=== PATIENT | female | born 1990 | race Caucasian/White ===

== ENCOUNTER 2023-02-07 09:06 | Day surgery (SDC) | payer BC ==
[2023-02-07] MEDS ORDERED: hydrALAZINE 20 MG/ML VIAL SLOW IVP PRN (11:27)
== END 2023-02-07 13:22 | disposition home or self-care (01) ==
LOC: CSHLD/OP 09:06
PROVIDERS: ATTEND Obstetrics & Gynecology
DX: O47.1 False labor at or after 37 completed weeks of gestation (principal); O99.513 Diseases of the respiratory system complicating pregnancy, third trimester; J45.909 Unspecified asthma, uncomplicated; Z79.899 Other long term (current) drug therapy; Z88.0 Allergy status to penicillin; Z3A.37 37 weeks gestation of pregnancy
CPT/HCPCS: 99283

== ENCOUNTER 2023-02-12 16:21 | Day surgery (SDC) | payer BC ==
[2023-02-12 17:02] VITALS: BMI 46.5
[2023-02-12 17:33] LABS: Fetal Membranes Rupture No Membranes Rupture (No Rupture)
[2023-02-12] MEDS ORDERED: hydrALAZINE 20 MG/ML VIAL SLOW IVP PRN (17:52)
== END 2023-02-12 17:55 | disposition home or self-care (01) ==
LOC: CSHLD/OP 16:21
PROVIDERS: ATTEND Obstetrics & Gynecology
DX: Z03.71 Encounter for suspected problem with amniotic cavity and membrane ruled out (principal); O47.1 False labor at or after 37 completed weeks of gestation; Z79.899 Other long term (current) drug therapy; Z88.0 Allergy status to penicillin; Z91.018 Allergy to other foods; Z3A.38 38 weeks gestation of pregnancy
CPT/HCPCS: 84112; 99283

== ENCOUNTER 2023-02-18 18:10 | Inpatient (IN) | payer BC ==
[~2023-02-18 18:10] MED LIST: Bupivacaine 0.25% HCL 30 ML VIAL ONE
[2023-02-18] MEDS ORDERED: Diphenoxylate HCl/Atropine Tablet PO PRN ×2 (18:51)
[2023-02-18] MEDS ORDERED: Misoprostol 200 MCG TAB PR PRN (18:51)
[2023-02-18] MEDS ORDERED: hydrALAZINE 20 MG/ML VIAL SLOW IVP PRN (18:51)
[2023-02-18] MEDS ORDERED: Butorphanol Tartrate 1 MG/ML VIAL SLOW IVP PRN (18:51)
[2023-02-18] MEDS ORDERED: Lidocaine 1% (PF) 30 ML VIAL SC PRN (18:51)
[2023-02-18] MEDS ORDERED: Ibuprofen 800 MG TAB PO PRN (18:51)
[2023-02-18] MEDS ORDERED: Lactated Ringer's 1,000 ML IV SCH (18:51)
[2023-02-18] MEDS ORDERED: Promethazine HCl 25 MG/ML VIAL IM PRN (18:51)
[2023-02-18] MEDS ORDERED: Methylergonovine 0.2 MG/ML VIAL IM PRN (18:51)
[2023-02-18] MEDS ORDERED: Carboprost 250 MCG/ML AMP IM PRN (18:51)
[2023-02-18] MEDS ORDERED: NS w/ Oxytocin 30 units 500 ML IV SCH ×2 (18:51)
[2023-02-18] MEDS ORDERED: HYDROcodone/Acetaminophen 5/325 mg Tablet PO PRN ×2 (18:51)
[2023-02-18] MEDS ORDERED: Acetaminophen 500 MG TAB PO PRN (18:51)
[2023-02-18] MEDS ORDERED: Ondansetron PF 4 MG/2 ML Vial IVP PRN (18:51)
[2023-02-18 18:53] VITALS: BMI 45.1
[2023-02-18 19:46] LABS: Hemoglobin 10.7 g/dL (12.0-15.5); Mean Corpuscular HGB CONC 31.6 g/dL (32.0-36.0); Mean Corpuscular Hemoglobin 25.2 pg (27.0-33.0); Mean Corpuscular Volume 79.8 fl (81.6-98.3); Mean Platelet Volume 9.5 fl (7.4-10.4); Platelet Count 253 10x3/uL (150-450); RBC Distribution Width 15.6 % (11.5-14.5); Red Blood Cell (RBC) Count 4.25 10x6/uL (3.90-5.03); White Blood Cell (WBC) Count 10.6 10x3/uL (3.5-10.5)
[2023-02-18 20:21] LABS: Syphilis Antibody Nonreactive (Nonreactive); Syphilis Antibody Index 0.03 S/CO (<1.00 Non-Reactive)
[2023-02-18 20:23] LABS: HBSAg Index 0.17 S/CO (0-0.99); Hep B Surf Ag - L&D Non-Reactive S/CO (NonReactive)
[2023-02-19] MEDS ORDERED: Fentanyl 100 MCG/2 ML VIAL ONE ×3 (08:04→14:07)
[2023-02-19] MEDS ORDERED: Fentanyl 2 mcg/Bup 0.1% Cadd 100 ML ONE (09:41)
[2023-02-19] MEDS ORDERED: Communication Order-Pharmacy FS SCH ×2 (10:00→14:45)
[2023-02-19] MEDS ORDERED: Fentanyl 2 mcg/Bupivacaine 0.1% Cassette 100 ML EPIDURAL SCH (10:00)
[2023-02-19] MEDS ORDERED: Famotidine/PF 20 mg/2ml Vial SLOW IVP PRN (13:13)
[2023-02-19] MEDS ORDERED: Bicitra 30 ML UDCUP PO PRN (13:13)
[2023-02-19] MEDS ORDERED: Acetaminophen 325 MG TAB PO PRN ×2 (13:21→14:42)
[2023-02-19] MEDS ORDERED: Simethicone Chewable 80 MG TAB PO PRN (13:21)
[2023-02-19] MEDS ORDERED: Lanolin Ointment 7 GM TUBE TOP PRN (13:21)
[2023-02-19] MEDS ORDERED: hydrALAZINE 20 MG/ML VIAL SLOW IVP PRN (13:21)
[2023-02-19] MEDS ORDERED: Zolpidem Tartrate 5 MG TAB PO PRN (13:21)
[2023-02-19] MEDS ORDERED: HYDROcodone/Acetaminophen 5/325 mg Tablet PO PRN ×2 (13:21)
[2023-02-19] MEDS ORDERED: Boostrix 0.5 ML (Tdap) VIAL (>/=7 yrs of age) IM ONE (13:21)
[2023-02-19] MEDS ORDERED: Bisacodyl 10 MG SUPP PR PRN (13:21)
[2023-02-19] MEDS ORDERED: diphenhydrAMINE 25 MG CAP PO PRN (13:21)
[2023-02-19] MEDS ORDERED: ePHEDrine Sulfate 50 MG/10 ML VIAL ONE (13:22)
[2023-02-19] MEDS ORDERED: PHENYLEPHRINE-NS 100 MCG/ML 10 ML SYRINGE ONE (13:22)
[2023-02-19] MEDS ORDERED: Oxytocin 10 UNITS/ML VIAL ONE ×2 (13:22→14:21)
[2023-02-19] MEDS ORDERED: Ketorolac Tromethamine 30 MG/ML VIAL ONE (13:22)
[2023-02-19] MEDS ORDERED: Ondansetron PF 4 MG/2 ML Vial ONE (13:22)
[2023-02-19] MEDS ORDERED: Azithromycin 500 MG VIAL ONE (13:23)
[2023-02-19] MEDS ORDERED: CEFAZOLIN 2 GM VIAL ONE (13:23)
[2023-02-19] MEDS ORDERED: Lidocaine 2% MPF 10 ML AMP (For Epidural Use) ONE ×2 (13:23→13:50)
[2023-02-19] MEDS ORDERED: Promethazine HCl 25 MG/ML VIAL IM PRN ×2 (14:38→14:42)
[2023-02-19] MEDS ORDERED: Moisturizing Cream (Eucerin) 113 GM JAR TOP PRN ×2 (14:38→14:42)
[2023-02-19] MEDS ORDERED: Naloxone HCl 0.4 mg/ml Vial IV PRN (14:38)
[2023-02-19] MEDS ORDERED: Meperidine HCl/PF 25 MG/ML VIAL SLOW IVP PRN (14:38)
[2023-02-19] MEDS ORDERED: Promethazine HCl 25 MG SUPP PR PRN (14:38)
[2023-02-19] MEDS ORDERED: Ondansetron PF 4 MG/2 ML Vial IVP PRN ×2 (14:38→14:42)
[2023-02-19] MEDS ORDERED: diphenhydrAMINE 50 MG/ML VIAL IVP PRN ×2 (14:38→14:42)
[2023-02-19] MEDS ORDERED: Fentanyl 100 MCG/2 ML VIAL SLOW IVP PRN (14:38)
[2023-02-19] MEDS ORDERED: Ondansetron HCl/PF 4 MG/2 ML Vial IVP PRN (14:38)
[2023-02-19] MEDS ORDERED: Naloxone HCl 0.4 mg/ml Vial IVP PRN ×4 (14:38→14:42)
[2023-02-19] MEDS ORDERED: Lactated Ringer's 500 ML IV PRN (14:42)
[2023-02-19] MEDS ORDERED: ePHEDrine Sulfate 50 MG/10 ML VIAL SLOW IVP PRN (14:42)
[2023-02-19] MEDS ORDERED: Meperidine HCl/PF 25 MG/ML VIAL ONE (16:04)
[2023-02-19] MEDS ORDERED: Dexamethasone 4 mg/ml Vial ONE (16:04)
[2023-02-19] MEDS ORDERED: Ketorolac Tromethamine 30 MG/ML VIAL IVP SCH (20:00)
[2023-02-19] MEDS ORDERED: Ketorolac Tromethamine 30 MG/ML VIAL IVP PRN (20:00)
[2023-02-19] MEDS ORDERED: Ibuprofen 800 MG TAB PO SCH (23:15)
[2023-02-19] MEDS: HYDROcodone/Acetaminophen 5/325 mg Tablet PO PRN (23:37)
[2023-02-20 04:16] LABS: Hemoglobin 8.2 g/dL (12.0-15.5); Mean Corpuscular HGB CONC 30.5 g/dL (32.0-36.0); Mean Corpuscular Hemoglobin 24.8 pg (27.0-33.0); Mean Corpuscular Volume 81.3 fl (81.6-98.3); Mean Platelet Volume 9.7 fl (7.4-10.4); Platelet Count 191 10x3/uL (150-450); RBC Distribution Width 15.8 % (11.5-14.5); Red Blood Cell (RBC) Count 3.31 10x6/uL (3.90-5.03); White Blood Cell (WBC) Count 11.1 10x3/uL (3.5-10.5)
[2023-02-20] MEDS: Docusate 100 MG CAP PO SCH ×3 (06:31→20:01)
[2023-02-20] MEDS: Ferrous Sulfate 325 MG TAB PO SCH ×3 (06:31→20:01)
[2023-02-20] MEDS: Ibuprofen 800 MG TAB PO SCH ×3 (06:32→22:00)
[2023-02-20] MEDS: HYDROcodone/Acetaminophen 5/325 mg Tablet PO PRN ×3 (07:39→20:01)
[2023-02-20] MEDS: Prenatal Vitamin 1 TAB PO SCH (14:09)
[2023-02-21] MEDS: HYDROcodone/Acetaminophen 5/325 mg Tablet PO PRN ×3 (00:04→10:28)
[2023-02-21] MEDS: Ibuprofen 800 MG TAB PO SCH (05:59)
[2023-02-21] MEDS ORDERED: Ibuprofen 800 MG TAB PO SCH (06:00)
[2023-02-21] MEDS: Ferrous Sulfate 325 MG TAB PO SCH (09:19)
[2023-02-21] MEDS: Docusate 100 MG CAP PO SCH (09:19)
[2023-02-21] MEDS: Prenatal Vitamin 1 TAB PO SCH (09:19)
[2023-02-21 11:29] VITALS: BP 131/65; TEMP 98.1
== END 2023-02-21 11:03 | disposition home or self-care (01) | DRG 807 ==
LOC: CSHLD 18:10 → CSHPP 02-19 16:50
PROVIDERS: ADMIT Obstetrics & Gynecology; ATTEND Obstetrics & Gynecology
PROC: 10E0XZZ Delivery of Products of Conception, External Approach (ICD-10-PCS; principal; 2023-02-19)
DX: O62.0 Primary inadequate contractions (principal); Z37.0 Single live birth; Z3A.39 39 weeks gestation of pregnancy; O34.211 Maternal care for low transverse scar from previous cesarean delivery; O99.214 Obesity complicating childbirth; E66.9 Obesity, unspecified; O99.52 Diseases of the respiratory system complicating childbirth; O99.02 Anemia complicating childbirth; J45.909 Unspecified asthma, uncomplicated; D64.9 Anemia, unspecified; Z88.1 Allergy status to other antibiotic agents; Z88.0 Allergy status to penicillin; Z91.018 Allergy to other foods; Z79.899 Other long term (current) drug therapy
CPT/HCPCS: 36415; 51702; 85027; 86780; 86850; 86900; 86901; 87340; J0456; J1100; J1885; J2175; J2405; J2550; J2590; J3010; S0020

== ENCOUNTER 2024-01-21 11:50 | Outpatient (CLI) | payer BC ==
[2024-01-21 12:51] LABS: Hematocrit 35.9 % (34.9-44.5); Hemoglobin 12.4 g/dL (12.0-15.5); Mean Corpuscular HGB CONC 34.5 g/dL (32.0-36.0); Mean Corpuscular Hemoglobin 29.8 pg (27.0-33.0); Mean Corpuscular Volume 86.3 fl (81.6-98.3); Mean Platelet Volume 10.2 fl (7.4-10.4); Platelet Count 215 10x3/uL (150-450); RBC Distribution Width 13.9 % (11.5-14.5); Red Blood Cell (RBC) Count 4.16 10x6/uL (3.90-5.03); White Blood Cell (WBC) Count 9.7 10x3/uL (3.5-10.5)
[2024-01-21 13:20] LABS: Anion Gap 14 mmol/L (10-20); BUN (Urea Nitrogen) 6 mg/dL (7.0-18.7); Calc. Creatinine Clearance 0 mL/min (70-130); Calcium 8.6 mg/dL (7.8-10.44); Carbon Dioxide 19 mmol/L (22-29); Chloride 109 mmol/L (98-107); Estimated GFR 118; Glucose 96 mg/dL (70-105); Potassium 3.6 mmol/L (3.5-5.1); Sodium 138 mmol/L (136-145)
== END 2024-01-21 11:51 | disposition home or self-care (01) ==
LOC: CSHLAB 11:50
PROVIDERS: ATTEND Orthopaedic Surgery
DX: Z01.818 Encounter for other preprocedural examination (principal); S93.325A Dislocation of tarsometatarsal joint of left foot, initial encounter
CPT/HCPCS: 80048; 85027; 93005; 93010

== ENCOUNTER 2024-01-22 10:02 | Day surgery (SDC) | payer BC ==
[2024-01-21 12:21] VITALS: BMI 44.2
[2024-01-22] MEDS ORDERED: Bupivacaine PF 0.5% 30 ML VIAL ONE ×2 (10:20→11:30)
[2024-01-22] MEDS ORDERED: CEFAZOLIN 2 GM VIAL ONE (11:24)
[2024-01-22] MEDS ORDERED: fentaNYL 50 mcg/mL 1 mL Vial ONE ×2 (11:26→13:01)
[2024-01-22] MEDS ORDERED: Rocuronium Bromide 10 MG/ML (10ML VIAL) ONE (11:26)
[2024-01-22] MEDS ORDERED: PROPOFOL 20 ML ONE (11:26)
[2024-01-22] MEDS ORDERED: SUGAMMADEX SODIUM 200 MG/2 ML VIAL ONE (11:26)
[2024-01-22] MEDS ORDERED: Dexamethasone 20 MG/5 ML VIAL ONE (11:26)
[2024-01-22] MEDS ORDERED: Ondansetron PF 4 MG/2 ML Vial ONE (11:26)
== END 2024-01-22 14:25 | disposition home or self-care (01) ==
LOC: CSHSDC 10:02
PROVIDERS: ATTEND Orthopaedic Surgery
PROC: 0QSP04Z Reposition Left Metatarsal with Internal Fixation Device, Open Approach (ICD-10-PCS; principal; 2024-01-22)
PROC: 0SSL04Z Reposition Left Tarsometatarsal Joint with Internal Fixation Device, Open Approach (ICD-10-PCS; principal; 2024-01-22)
DX: S93.325A Dislocation of tarsometatarsal joint of left foot, initial encounter (principal); Z88.0 Allergy status to penicillin; Z88.1 Allergy status to other antibiotic agents; Z91.018 Allergy to other foods; Z91.02 Food additives allergy status; W22.09XA Striking against other stationary object, initial encounter; Y92.008 Other place in unspecified non-institutional (private) residence as the place of occurrence of the external cause
CPT/HCPCS: J0665; J1100; J2405; J2704; J3010

== ENCOUNTER 2024-05-10 11:15 | Day surgery (SDC) | payer BC ==
[2024-05-10 12:13] VITALS: BMI 47.9
== END 2024-05-10 16:50 | disposition home or self-care (01) ==
LOC: CSHLD/OP 11:15
PROVIDERS: ATTEND Obstetrics & Gynecology
DX: O99.891 Other specified diseases and conditions complicating pregnancy (principal); R51.9 Headache, unspecified; O34.219 Maternal care for unspecified type scar from previous cesarean delivery; Z3A.34 34 weeks gestation of pregnancy; Z88.1 Allergy status to other antibiotic agents; Z88.0 Allergy status to penicillin; Z91.018 Allergy to other foods; Z91.02 Food additives allergy status
CPT/HCPCS: 36415; 80053; 81001; 82570; 84156; 85025; 87086; J2405; J2765

== ENCOUNTER 2024-05-11 20:56 | Day surgery (SDC) | payer BC ==
[2024-05-11] MEDS ORDERED: hydrALAZINE 20 MG/ML VIAL SLOW IVP PRN (21:00)
[2024-05-11 21:25] VITALS: BMI 47.9
[2024-05-11] MEDS: diphenhydrAMINE 50 MG/ML VIAL IVP PRN (22:39)
[2024-05-11 22:46] LABS: #Basophils 0.03 10x3/uL (0.0-0.2); #Monocytes 0.95 10x3/uL (0.0-1.1); #Neutrophils 8.84 10x3/uL (1.5-8.4); %Basophils 0.2 % (0.0-2.0); %Eosinophils 0.8 % (0.0-6.0); %Lymphocytes 17.4 % (18.0-47.0); %Monocytes 7.7 % (0.0-10.0); %Neutrophils 71.6 % (40.0-75.0); Hematocrit 33.1 % (34.9-44.5); Hemoglobin 10.8 g/dL (12.0-15.5); Mean Corpuscular HGB CONC 32.6 g/dL (32.0-36.0); Mean Corpuscular Hemoglobin 26.4 pg (27.0-33.0); Mean Corpuscular Volume 80.9 fL (81.6-98.3); Mean Platelet Volume 9.6 fL (7.4-10.4); Platelet Count 230 10x3/uL (150-450); RBC Distribution Width 15.8 % (11.5-14.5); Red Blood Cell (RBC) Count 4.09 10x6/uL (3.90-5.03); White Blood Cell (WBC) Count 12.4 10x3/uL (3.5-10.5)
[2024-05-11] MEDS: Metoclopramide HCl 10 MG (2 mL) VIAL IVP SCH (22:46)
[2024-05-12 00:18] LABS: ALT (SGPT) 13 U/L (8-55); AST (SGOT) 13 U/L (5-34); Albumin 2.8 g/dL (3.5-5.0); Alkaline Phosphatase 80 U/L (40-110); Anion Gap 15 mmol/L (10-20); BUN (Urea Nitrogen) 8 mg/dL (7.0-18.7); Bilirubin, Total 0.4 mg/dL (0.2-1.2); Calc. Creatinine Clearance 261 mL/min (70-130); Calcium 8.8 mg/dL (7.8-10.44); Carbon Dioxide 20 mmol/L (22-29); Chloride 105 mmol/L (98-107); Estimated GFR 118; Globulin 3.6 g/dL (2.4-3.5); Glucose 97 mg/dL (70-105); Potassium 3.6 mmol/L (3.5-5.1); Protein, Total 6.4 g/dL (6.0-8.3); Sodium 136 mmol/L (136-145)
== END 2024-05-12 00:40 | disposition home or self-care (01) ==
LOC: CSHLD/OP 20:56
PROVIDERS: ATTEND Obstetrics & Gynecology
DX: O10.913 Unspecified pre-existing hypertension complicating pregnancy, third trimester (principal); O47.03 False labor before 37 completed weeks of gestation, third trimester; O99.891 Other specified diseases and conditions complicating pregnancy; R51.9 Headache, unspecified; O99.213 Obesity complicating pregnancy, third trimester; O34.83 Maternal care for other abnormalities of pelvic organs, third trimester; N83.201 Unspecified ovarian cyst, right side; Z79.899 Other long term (current) drug therapy; Z88.0 Allergy status to penicillin; Z91.018 Allergy to other foods; Z3A.35 35 weeks gestation of pregnancy; Z90.721 Acquired absence of ovaries, unilateral
CPT/HCPCS: 36415; 80053; 82570; 84156; 85025; J1200; J2765

== ENCOUNTER 2024-05-25 05:25 | Inpatient (IN) | payer BC ==
[2024-05-24 11:36] LABS: Hematocrit 33.4 % (34.9-44.5); Hemoglobin 10.9 g/dL (12.0-15.5); Platelet Count 195 10x3/uL (150-450)
[2024-05-24 11:48] LABS: ALT (SGPT) 15 U/L (8-55); AST (SGOT) 13 U/L (5-34); Albumin 2.9 g/dL (3.5-5.0); Alkaline Phosphatase 104 U/L (40-110); Anion Gap 13 mmol/L (10-20); BUN (Urea Nitrogen) 8 mg/dL (7.0-18.7); Bilirubin, Total 0.4 mg/dL (0.2-1.2); Calc. Creatinine Clearance 0 mL/min (70-130); Calcium 9.4 mg/dL (7.8-10.44); Carbon Dioxide 21 mmol/L (22-29); Chloride 107 mmol/L (98-107); Estimated GFR 119; Globulin 3.8 g/dL (2.4-3.5); Glucose 86 mg/dL (70-105); Protein, Total 6.7 g/dL (6.0-8.3); Sodium 137 mmol/L (136-145)
[2024-05-24 12:07] LABS: Syphilis Antibody Nonreactive (Nonreactive); Syphilis Antibody Index 0.05 S/CO (<1.00 Non-Reactive)
[2024-05-24 12:33] LABS: HBsAg Index 0.24 S/CO (0-0.99); Hep B Surf Ag Non-Reactive S/CO (NonReactive)
[2024-05-25 05:39] VITALS: BMI 47.6
[2024-05-25] MEDS ORDERED: Diphenoxylate HCl/Atropine Tablet PO PRN ×2 (07:18)
[2024-05-25] MEDS ORDERED: Ondansetron PF 4 MG/2 ML Vial IVP PRN ×3 (07:18→09:17)
[2024-05-25] MEDS ORDERED: Bicitra 30 ML UDCUP PO PRN (07:18)
[2024-05-25] MEDS ORDERED: Tranexamic Acid 1,000 MG/10 ML VIAL IVP PRN (07:18)
[2024-05-25] MEDS ORDERED: hydrALAZINE 20 MG/ML VIAL SLOW IVP PRN ×2 (07:18→12:27)
[2024-05-25] MEDS ORDERED: Misoprostol 200 MCG TAB PR PRN (07:18)
[2024-05-25] MEDS ORDERED: Promethazine HCl 25 MG/ML VIAL IM PRN ×2 (07:18→09:17)
[2024-05-25] MEDS ORDERED: Carboprost 250 MCG/ML AMP IM PRN (07:18)
[2024-05-25] MEDS ORDERED: Oxytocin 30 units/NS 500 ML 500 ML IV SCH (07:30)
[2024-05-25] MEDS ORDERED: Clindamycin/D5W 900 MG in Premix 1 BAG IVPB SCH (07:30)
[2024-05-25] MEDS: Famotidine/PF 20 mg/2ml Vial SLOW IVP PRN (07:38)
[2024-05-25] MEDS: Lactated Ringer's 1,000 ML IV SCH (07:43)
[2024-05-25] MEDS: Clindamycin/D5W 900 mg/50 ml Premix Bag ONE (07:50)
[2024-05-25] MEDS ORDERED: Naloxone HCl 0.4 mg/ml Vial IV PRN (09:17)
[2024-05-25] MEDS ORDERED: fentaNYL 50 mcg/mL 1 mL Vial SLOW IVP PRN (09:17)
[2024-05-25] MEDS ORDERED: HYDROmorphone 0.5 MG/0.5 ML SYRINGE SLOW IVP PRN (09:17)
[2024-05-25] MEDS ORDERED: Moisturizing Cream (Eucerin) 113 GM JAR TOP PRN (09:17)
[2024-05-25] MEDS ORDERED: Meperidine HCl/PF 25 MG (1 mL) VIAL SLOW IVP PRN (09:17)
[2024-05-25] MEDS ORDERED: Naloxone HCl 0.4 mg/ml Vial IVP PRN ×2 (09:17)
[2024-05-25] MEDS ORDERED: Communication Order-Pharmacy FS SCH (09:30)
[2024-05-25] MEDS ORDERED: Ketorolac Tromethamine 30 MG (1 mL) VIAL IVP SCH (09:30)
[2024-05-25] MEDS ORDERED: diphenhydrAMINE 25 MG CAP PO PRN (12:27)
[2024-05-25] MEDS ORDERED: Bisacodyl 10 MG SUPP PR PRN (12:27)
[2024-05-25] MEDS ORDERED: Lanolin Ointment 7 GM TUBE TOP PRN (12:27)
[2024-05-25] MEDS ORDERED: Acetaminophen 325 MG TAB PO PRN (12:27)
[2024-05-25] MEDS: diphenhydrAMINE 50 MG/ML VIAL IVP PRN (13:03)
[2024-05-25] MEDS: Ketorolac Tromethamine 30 MG (1 mL) VIAL IVP PRN (13:03)
[2024-05-25] MEDS: Azithromycin 500 MG VIAL ONE (16:23)
[2024-05-25] MEDS: Ondansetron PF 4 MG/2 ML Vial ONE (16:24)
[2024-05-25] MEDS: CEFAZOLIN 2 GM VIAL ONE (16:24)
[2024-05-25] MEDS: Oxytocin 10 UNITS/ML VIAL ONE ×2 (16:24→16:25)
[2024-05-25] MEDS: Tranexamic Acid 1,000 MG/10 ML VIAL ONE (16:24)
[2024-05-25] MEDS: PHENYLEPHRINE-NS 100 MCG/ML 10 ML SYRINGE ONE ×2 (16:24)
[2024-05-25] MEDS: fentaNYL 50 mcg/mL 1 mL Vial ONE (16:24)
[2024-05-25] MEDS: Carboprost 250 MCG/ML AMP ONE (16:24)
[2024-05-25] MEDS: Morphine PF 10 MG/10 ML VIAL ONE (16:24)
[2024-05-25] MEDS: Boostrix 0.5 ML (Tdap) VIAL (>/=7 yrs of age) IM ONE (16:25)
[2024-05-25] MEDS: Ferrous Sulfate 325 MG TAB PO SCH (21:02)
[2024-05-25] MEDS: Docusate 100 MG CAP PO SCH (21:17)
[2024-05-26 03:36] LABS: Hematocrit 29.9 % (34.9-44.5); Hemoglobin 9.6 g/dL (12.0-15.5); Mean Corpuscular HGB CONC 32.1 g/dL (32.0-36.0); Mean Platelet Volume 9.7 fL (7.4-10.4); Platelet Count 174 10x3/uL (150-450); RBC Distribution Width 16.3 % (11.5-14.5); Red Blood Cell (RBC) Count 3.69 10x6/uL (3.90-5.03); White Blood Cell (WBC) Count 10.6 10x3/uL (3.5-10.5)
[2024-05-26] MEDS: HYDROcodone/Acetaminophen 5/325 mg Tablet PO PRN ×2 (03:54→08:07)
[2024-05-26] MEDS: Simethicone Chewable 80 MG TAB PO PRN (08:06)
[2024-05-26] MEDS: Prenatal Vitamin 1 TAB PO SCH (08:07)
[2024-05-26] MEDS: Ibuprofen 800 MG TAB PO SCH (13:43)
[2024-05-27 07:58] VITALS: BP 139/89; TEMP 98.3
== END 2024-05-27 12:30 | disposition home or self-care (01) | DRG 785 ==
LOC: CSHLD 05:25 → CSHPED 11:40
PROVIDERS: ADMIT Obstetrics & Gynecology; ATTEND Obstetrics & Gynecology
PROC: 10D00Z1 Extraction of Products of Conception, Low, Open Approach (ICD-10-PCS; principal; 2024-05-25)
PROC: 0UT70ZZ Resection of Bilateral Fallopian Tubes, Open Approach (ICD-10-PCS; 2024-05-25)
DX: O34.211 Maternal care for low transverse scar from previous cesarean delivery (principal); O13.4 Gestational [pregnancy-induced] hypertension without significant proteinuria, complicating childbirth; Z3A.37 37 weeks gestation of pregnancy; Z37.0 Single live birth; O99.214 Obesity complicating childbirth; Z80.41 Family history of malignant neoplasm of ovary; O09.523 Supervision of elderly multigravida, third trimester; Z30.2 Encounter for sterilization
CPT/HCPCS: 51702; 80053; 85014; 85018; 85027; 85049; 86780; 86850; 86900; 86901; 87340; 88302; J1200; J1885; J2274; J2405; J2590; J3010; J3490; J7120; S0028